=== PATIENT | female | born 1990 | race African-American/Black ===

== ENCOUNTER 2017-01-30 00:46 | Emergency (ER) | payer OTHER ==
[2017-01-30] MEDS ORDERED: Ibuprofen TAB* 600 MG PO ONE (03:26)
--- NOTE | 2017-01-30 03:33 | ED ---
yunior Araiza Timothy, scribed for Adolfo Antonio MD on 01/30/17 at 0234 . Lower Extremity - HPI Summary HPI Summary: Iris Dumont is a 26 yo female presenting to [facility] with 6/10 right arm and right ankle pain after falling down one step at 0000 this morning. She states she cannot rotate her right arm at the elbow. She states she has a Hx of sprained right ankle. She states she is not experiencing right wrist pain. Her MHx includes right ankle sprain. - History of Current Complaint Chief Complaint: EDExtremityLower Stated Complaint: RIGHT ARM AND ANKLE PAIN Time Seen by Provider: 01/30/17 02:26 Hx Obtained From: Patient Mechanism Of Injury: Fall From Height Of: - 1 step Onset of Pain: Immediate Onset/Duration: Hours Severity Initially: Moderate Severity Currently: Moderate Pain Intensity: 6 Pain Scale Used: 0-10 Numeric Timing: Constant Location: Is Discrete @ - ankle RLE, RUE - Allergies/Home Medications Allergies/Adverse Reactions: Allergies Allergy/AdvReac Type Severity Reaction Status Date / Time No Known Allergies Allergy Verified 01/30/17 00:51 PMH/Surg Hx/FS Hx/Imm Hx Infectious Disease History: Denies: Traveled Outside the [place] in Last 30 Days - Family History Known Family History: Negative: Cardiac Disease, Hypertension, Diabetes - Social History Alcohol Use: Occasionally Hx Substance Use: No Substance Use Type: Reports: None Hx Tobacco Use: No Smoking Status (MU): Never Smoked Tobacco Review of Systems Constitutional: Negative Eyes: Negative ENT: Negative Cardiovascular: Negative Respiratory: Negative Gastrointestinal: Negative Genitourinary: Negative Musculoskeletal: Other - pain at right ankle and RUE Skin: Negative Neurological: Negative Psychological: Normal All Other Systems Reviewed And Are Negative: Yes Physical Exam Triage Information Reviewed: Yes Vital Signs On Initial Exam: Initial Vitals Temp Pulse Resp BP Pulse Ox 97.3 F 88 18 131/80 96 01/30/17 00:50 01/30/17 00:50 01/30/17 00:50 01/30/17 00:50 01/30/17 00:50 Vital Signs Reviewed: Yes Appearance: Positive: Well-Appearing, No Pain Distress, Well-Nourished Skin: Positive: Warm, Skin Color Reflects Adequate Perfusion, Dry Head/Face: Positive: Normal Head/Face Inspection Eyes: Positive: EOMI, DAVID ENT: Positive: Normal ENT inspection Neck: Positive: Supple, Nontender Respiratory/Lung Sounds: Positive: Clear to Auscultation, Breath Sounds Present Cardiovascular: Positive: RRR Abdomen Description: Positive: Nontender, Soft Bowel Sounds: Positive: Present Musculoskeletal: Positive: Other - pain distress with movement of right elbow. She is tender at the right elbow and at the right lateral ankle which is also swollen. She has decreased ROM secondary to pain at the right ankle. Pt declines right elbow exam, as she cannot move it secondary to pain. She has good pulses distally and good sensation. She is nontender at the right shoulder. Neurological: Positive: Normal, Sensory/Motor Intact, Alert, Oriented to Person Place, Time Psychiatric: Positive: Affect/Mood Appropriate Diagnostics - Vital Signs Vital Signs Temp Pulse Resp BP Pulse Ox 01/30/17 00:50 97.3 F 88 18 131/80 96 - Laboratory Lab Statement: Any lab studies that have been ordered have been reviewed, and results considered in the medical decision making process. - Radiology R Elbow XR Xray Interpretation: No Acute Changes - No fracture Radiology Interpretation Completed By: ED Physician R ankle XR Xray Interpretation: No Acute Changes - No fracture Radiology Interpretation Completed By: ED Physician Lower Extremity Course/Dx - Course Assessment/Plan: Iris Dumont is a 26 yo female presenting to [facility] with 6/10 RUE and RLE ankle pain since 0000 S/P falling down 1 step. Pt medication list reviewed this visit. She declines pain medication at this time. Emergency physician x-ray interpretations; R elbow and Rt ankle no fracture. After clinical examination and review of her imaging studies, she will be discharged home with appropriate instructions. NO CRITICAL CARE TIME. PATIENT NOT ABLE TO EXTEND/PRONATE/SUPINATE RT ELBOW WHICH MAY INDICATE AN INJURY MORE THAN A SPRAIN. I DISCUSSED THIS WITH THE PATIENT AND SHE WILL F/U WITH REGI FOR FINAL RADIOLOGIST INTERPRETATION AND FURTHER CARE WHICH MAY INCLUDE ORTHOPEDIC REFERRAL. DISCHARGE HOME STABLE. - Diagnoses Provider Diagnoses: Injury of elbow, right, Right ankle sprain Discharge - Discharge Plan Condition: Stable Disposition: HOME Patient Education Materials: Ankle Sprain (ED), Elbow Sprain (ED) Referrals: [facility] [Primary Care Provider] - 2 Days Additional Instructions: FOLLOW UP WITH REGI TODAY. THE RADIOLOGIST READING WILL BE COMPLETE BY NOON TODAY. DISCUSS THE FINAL X-RAY READING WITH [facility] TO DETERMINE FURTHER TREATMENT. YOU MAY NEED TO BE REFERRED TO AN ORTHOPEDIST FOR YOUR INJURY. RETURN TO THE EMERGENCY DEPARTMENT FOR ANY WORSENING OF YOUR CONDITION OR QUESTIONS OR CONCERNS. The documentation as recorded by the yunior lara Timothy accurately reflects the service I personally performed and the decisions made by me, Adolfo Antonio MD.
[2017-01-30 04:38] VITALS: BP 107/68
--- NOTE | 2017-01-30 07:52 | RAD ---
INDICATION: Lateral RIGHT elbow pain post fall. COMPARISON: No relevant prior exams available on the [facility] PACS for comparison. TECHNIQUE: AP, lateral, and oblique views RIGHT elbow. REPORT: Displaced anterior and posterior fat pads indicating joint effusion. Suggestion of a mild impaction fracture at the radial head neck junction. No additional fracture evident. Normal articular alignment. Unremarkable soft tissue contours. IMPRESSION: Joint effusion likely secondary to mild impaction fracture at the radial head neck junction.
--- NOTE | 2017-01-30 07:53 | RAD ---
INDICATION: Right ankle injury. TECHNIQUE: 3 views of the right ankle were obtained. FINDINGS: Soft tissue swelling is noted along the anterolateral aspect of the ankle. No fracture is seen. Joint spaces appear maintained. IMPRESSION: SOFT TISSUE SWELLING, NO FRACTURE IS SEEN.
== END 2017-01-30 04:10 | disposition home or self-care (01) ==
LOC: ED 00:46
DX: S59.901A Unspecified injury of right elbow, initial encounter (principal); S93.401A Sprain of unspecified ligament of right ankle, initial encounter; W10.9XXA Fall (on) (from) unspecified stairs and steps, initial encounter; Y93.9 Activity, unspecified; Y92.9 Unspecified place or not applicable
CPT/HCPCS: 99282; A9270-GY